=== PATIENT | female | born 1955 | race Caucasian/White ===

== ENCOUNTER → 2017-10-13 | Outpatient (CLI) | payer OTHER | LOC: M.RAD 07:01 | DX: Z12.31 Encounter for screening mammogram for malignant neoplasm of breast (principal) ==

== ENCOUNTER → 2019-01-04 | Emergency (ER) | payer MEDICARE ==
[~2019-01-04] VITALS: Ht 154.9 cm; Wt 88.0 kg
[~2019-01-04] MED LIST: NORCO 5-325 TA1 EAC1 PO; XARELTO15 MG PO
[2019-01-04 23:44] LABS: HEMATOCRIT 41.9 % (37.0-47.0); HEMOGLOBIN 13.7 gm/dL (12.0-15.0); MCH 30.7 pg (26.0-34.0); MCHC 32.7 g/dL (28.0-37.0); MCV 93.9 fL (80.0-100.0); MPV 10.9 fl. (7.2-11.1); NUCLEATED RBCS 0 /100WBC; PLATELET COUNT* 188 thou/uL (150-400); RBC 4.46 mil/uL (4.20-5.00); RDW-CV 13.7 % (10.5-14.5); WBC 12.6 thou/uL (4.0-11.0)
[2019-01-04 23:57] LABS: ANION GAP 7 mmol/L (7-16); BUN 16 mg/dL (7-18); CALCIUM 8.9 mg/dL (8.5-10.1); CHLORIDE 106 mmol/L (98-107); CO2 28 mmol/L (21-32); CREATININE 1.1 mg/dL (0.6-1.3); GLUCOSE 153 mg/dL (70-99); POTASSIUM 3.8 mmol/L (3.5-5.1); SODIUM 141 mmol/L (136-145)
[2019-01-05 00:05] LABS: APTT 27.5 Seconds (25.0-31.3); PROTIME 10.7 Seconds (9.20-11.50)
[2019-01-05 00:07] LABS: ALBUMIN 3.3 g/dL (3.4-5.0); ALKALINE PHOSPHATASE 91 U/L (46-116); LIPASE 130 U/L (73-393); SGOT 14 U/L (15-37); SGPT 20 U/L (30-65); TOTAL BILIRUBIN 0.4 mg/dL (<0.1-1.0); TOTAL PROTEIN 6.9 g/dL (6.4-8.2); TROPONIN-I LEVEL <0.06 ng/mL (<0.06)
[2019-01-05 00:53] LABS: ABSOLUTE LYMPHOCYTES 1.9 thou/uL (0.8-5.3); ABSOLUTE MONOCYTES 0.5 thou/uL (0.0-1.2); ABSOLUTE NEUTROPHILS 10.2 thou/uL (1.6-8.1)
[2019-01-05 00:54] LABS: PLATELET ESTIMATE ADEQUATE
[2019-01-05 00:55] LABS: LARGE PLATELETS OCCASIONAL
[2019-01-05 02:24] VITALS: BP 118/72
--- NOTE | 2019-01-07 12:20 | EKG ---
[place] [address] ELECTROCARDIOGRAM REPORT Name: BRIEN MCKAY Room: [facility]#: [id number] Admission: 01/04/19 Attend Phys: Discharge: Date of : 51 Report #: [id number] THIS REPORT FOR: //name// [facility] ED Test Date: 2019-01-04 Test Time: 22:53:10 Pat Name: BRIEN MCKAY Department: Room: Gender: F [employer]acht [employer]: [facility] : 1955 Requested By: Risa Nava Order Number: [id number] MD: Ayan Pearson Measurements Intervals [place] Rate: 84 P: 84 [place]: 143 QRS: 55 QRSD: 87 T: 32 QT: 367 QTc: 434 Interpretive Statements Sinus rhythm Probable left atrial enlargement No previous ECG available for comparison Electronically Signed On 01-07-2019 12:19:48 CDT by Ayan Pearson [email or web address] <ELECTRONICALLY SIGNED> By: Ayan Pearson MD, [facility] 01/07/19 1219 2253 [id number] Ayan Pearson MD, FACC /EPI
== END ==
LOC: M.ERS 22:46
PROVIDERS: Personal Emergency Response Attendant
DX: I26.99 Other pulmonary embolism without acute cor pulmonale (principal)

== ENCOUNTER → 2021-02-01 | Outpatient (CLI) | payer MEDICARE, OTHER | LOC: M.RAD 01-25 09:00 | PROVIDERS: ATTEND Family Medicine | DX: Z12.31 Encounter for screening mammogram for malignant neoplasm of breast (principal); Z13.820 Encounter for screening for osteoporosis; M81.0 Age-related osteoporosis without current pathological fracture; Z78.0 Asymptomatic menopausal state ==